=== PATIENT | female | born 2005 | race Hispanic/Latino ===

== ENCOUNTER 2024-02-06 13:30 | Inpatient (IN) | payer MEDICAID, OTHER, SELFPAY ==
[~2024-02-06 13:30] MED LIST: Bupivacaine/Epinephrine 0.25% 30 ML VIAL ONE
[2024-02-06] MEDS ORDERED: hydrALAZINE 20 MG/ML VIAL SLOW IVP PRN ×2 (14:34→20:02)
[2024-02-06] MEDS ORDERED: Ondansetron ODT 4 MG TAB PO PRN (14:34)
[2024-02-06] MEDS: Acetaminophen 500 MG TAB PO SCH (15:39)
[2024-02-06 15:51] LABS: Bilirubin Neg (Negative); Blood, Urine 10 (Negative); Clarity Clear (Clear); Glucose, Urine (Dipstick) Normal (Negative); Ketone, Urine 5 mg/dL (Negative); Leukocyte 25 (Negative); Nitrite Negative (Negative); Protein, Urine (Dipstick) Negative (Neg-Trace); Specific Gravity, Urine 1.005 (1.005-1.030); Urobilinogen Normal mg/dL (Less than 2)
[2024-02-06 15:54] VITALS: BMI 30.7
[2024-02-06 16:08] LABS: Bacteria/HPF 1+ HPF (None Seen); CAUTI Indications for Culture Pregnancy; RBC/HPF 0-3 HPF (0-3); Squamous Epithelial 0-3 HPF (0-3); WBC/HPF 0-3 HPF (0-3)
[2024-02-06 16:09] LABS: Urine Culture Reflex Yes Yes
[2024-02-06] MEDS ORDERED: Ondansetron PF 4 MG/2 ML Vial IVP PRN ×2 (20:02→22:10)
[2024-02-06] MEDS ORDERED: Misoprostol 200 MCG TAB PR PRN (20:02)
[2024-02-06] MEDS ORDERED: Carboprost 250 MCG/ML AMP IM PRN (20:02)
[2024-02-06] MEDS ORDERED: Tranexamic Acid 1,000 MG/10 ML VIAL IVP PRN (20:02)
[2024-02-06] MEDS ORDERED: Lidocaine 1% (PF) 30 ML VIAL SC PRN (20:02)
[2024-02-06] MEDS ORDERED: Methylergonovine 0.2 MG/ML VIAL IM PRN (20:02)
[2024-02-06] MEDS ORDERED: Diphenoxylate HCl/Atropine Tablet PO PRN (20:02)
[2024-02-06] MEDS ORDERED: Acetaminophen 500 MG TAB PO PRN (20:02)
[2024-02-06] MEDS ORDERED: Promethazine HCl 25 MG/ML VIAL IM PRN ×2 (20:02→22:10)
[2024-02-06] MEDS ORDERED: Oxytocin 30 units/NS 500 ML 500 ML IV SCH (20:15)
[2024-02-06] MEDS ORDERED: Lactated Ringer's 1,000 ML IV SCH (20:15)
[2024-02-06 21:01] LABS: Hematocrit 35.4 % (34.9-44.5); Hemoglobin 12.7 g/dL (12.0-15.5); Mean Corpuscular HGB CONC 35.9 g/dL (32.0-36.0); Mean Corpuscular Hemoglobin 30.5 pg (27.0-33.0); Mean Corpuscular Volume 85.1 fL (81.6-98.3); Mean Platelet Volume 10.8 fL (7.4-10.4); Platelet Count 220 10x3/uL (150-450); RBC Distribution Width 13.2 % (11.5-14.5); Red Blood Cell (RBC) Count 4.16 10x6/uL (3.90-5.03); White Blood Cell (WBC) Count 11.6 10x3/uL (3.5-10.5)
[2024-02-06 21:31] LABS: HBsAg Index 0.15 S/CO (0-0.99); Hep B Surf Ag - L&D Non-Reactive S/CO (NonReactive)
[2024-02-06 21:32] LABS: Syphilis Antibody Nonreactive (Nonreactive); Syphilis Antibody Index 0.03 S/CO (<1.00 Non-Reactive)
[2024-02-06] MEDS: fentaNYL/Ropivacaine Epidural 100 ML ONE (21:42)
[2024-02-06] MEDS ORDERED: diphenhydrAMINE 50 MG/ML VIAL IVP PRN (22:10)
[2024-02-06] MEDS ORDERED: Lactated Ringer's 500 ML IV PRN (22:10)
[2024-02-06] MEDS ORDERED: Naloxone HCl 0.4 mg/ml Vial IVP PRN ×2 (22:10)
[2024-02-06] MEDS ORDERED: Moisturizing Cream (Eucerin) 113 GM JAR TOP PRN (22:10)
[2024-02-06] MEDS ORDERED: ePHEDrine Sulfate 50 MG/10 ML VIAL SLOW IVP PRN (22:10)
[2024-02-06] MEDS ORDERED: fentaNYL 2 mcg/Ropivacaine 0.2% Epidural 100 ML CADD EPIDURAL SCH (22:15)
[2024-02-06] MEDS ORDERED: Communication Order-Pharmacy FS SCH (22:15)
[2024-02-07] MEDS: Oxytocin 30 units/NS 500 ML 500 ML IV SCH (08:55)
[2024-02-07] MEDS: fentaNYL 50 mcg/mL 1 mL Vial ONE (09:10)
[2024-02-07] MEDS: Acetaminophen 325 MG TAB PO PRN ×2 (10:00→23:40)
[2024-02-07] MEDS: Ibuprofen 800 MG TAB PO PRN (10:00)
[2024-02-07] MEDS ORDERED: Milk Of Magnesia 30 ML UDCUP PO PRN (15:55)
[2024-02-07] MEDS ORDERED: Bisacodyl 10 MG SUPP PR PRN (15:55)
[2024-02-07] MEDS ORDERED: hydrALAZINE 20 MG/ML VIAL SLOW IVP PRN (15:55)
[2024-02-07] MEDS ORDERED: Preparation H Ointment 28 GM TUBE PR PRN (15:55)
[2024-02-07] MEDS ORDERED: Methylergonovine 0.2 MG/ML VIAL IM PRN (15:55)
[2024-02-07] MEDS ORDERED: Misoprostol 200 MCG TAB VAG PRN (15:55)
[2024-02-07] MEDS ORDERED: Lanolin Ointment 7 GM TUBE TOP PRN (15:55)
[2024-02-07] MEDS ORDERED: diphenhydrAMINE 25 MG CAP PO PRN (15:55)
[2024-02-07] MEDS ORDERED: Boostrix 0.5 ML (Tdap) VIAL (>/=7 yrs of age) IM ONE (15:55)
[2024-02-07] MEDS ORDERED: Oxytocin 30 units/NS 500 ML 500 ML IV SCH (15:55)
[2024-02-07] MEDS: Benzocaine-Menthol 82.5 ML CAN TOP PRN (17:46)
[2024-02-07] MEDS: Ibuprofen 800 MG TAB PO SCH (17:46)
[2024-02-07] MEDS: fentaNYL 50 mcg/mL 1 mL Vial SLOW IVP SCH (18:07)
[2024-02-07] MEDS: Ferrous Sulfate 325 MG TAB PO SCH (18:08)
[2024-02-07] MEDS: Docusate 100 MG CAP PO SCH (21:24)
[2024-02-08] MEDS: Prenatal Vitamin 1 TAB PO SCH (09:27)
[2024-02-09 07:45] VITALS: BP 118/62; TEMP 97.7
== END 2024-02-09 12:15 | disposition home or self-care (01) | DRG 806 ==
LOC: CSHLD/OP 13:30 → CSHLD 20:18 → CSHPP 02-07 12:00
PROVIDERS: ADMIT Obstetrics & Gynecology; ATTEND Obstetrics & Gynecology
PROC: 10E0XZZ Delivery of Products of Conception, External Approach (ICD-10-PCS; principal; 2024-02-07)
PROC: 10907ZC Drainage of Amniotic Fluid, Therapeutic from Products of Conception, Via Natural or Artificial Opening (ICD-10-PCS; 2024-02-07)
PROC: 0UQG7ZZ Repair Vagina, Via Natural or Artificial Opening (ICD-10-PCS; 2024-02-07)
PROC: 0UQMXZZ Repair Vulva, External Approach (ICD-10-PCS; 2024-02-07)
DX: O99.02 Anemia complicating childbirth (principal); O71.4 Obstetric high vaginal laceration alone; Z37.0 Single live birth; O98.52 Other viral diseases complicating childbirth; B00.9 Herpesviral infection, unspecified; Z3A.38 38 weeks gestation of pregnancy; O71.82 Other specified trauma to perineum and vulva; D64.9 Anemia, unspecified
CPT/HCPCS: 36415; 51702; 81001; 85027; 86780; 86850; 86900; 86901; 87086; 87340; 99285; J2590; J3010